=== PATIENT | female | born 1990 | race American Indian/Alaskan Native ===

== ENCOUNTER 2017-03-01 05:54 | Outpatient (CLI) | payer MEDICAID ==
--- NOTE | 2017-03-01 03:13 | XRay Report ---
FINAL REPORT PROCEDURE: XR CHEST ROUTINE 2V TECHNIQUE: HISTORY: cough x 3 weeks COMPARISON: No prior studies are available for comparison. FINDINGS: IMPRESSION:
--- NOTE | 2017-03-01 03:49 | Emergency Department Report ---
- General Chief Complaint: Upper Respiratory Infection Stated Complaint: SOB/COUGHING Source: patient Mode of arrival: Ambulatory Limitations: No Limitations - History of Present Illness Initial Comments: 26-year-old female past medical history bipolar disorder, anxiety, 24 weeks presents with complaint of 3 weeks of persistent cough. Patient states she has recently been on antibiotics azithromycin and has been using her albuterol inhaler with minimal relief of her cough. Patient is awake alert and oriented 3 nontoxic-appearing denies any smoking. States she is also having mild lower abdominal discomfort and eyes any vaginal bleeding. Denies any diarrhea and states she sometimes becomes nauseous after coughing fits. MD Complaint: cough Onset/Timin -: week(s) Severity: moderate Consistency: constant Improves With: OTC cold medicine Worsens With: nothing - Related Data Previous Rx's Medication Instructions Recorded Last Taken Type Ondansetron [Zofran Odt] 4 mg PO Q8H PRN #15 tab.rapdis 03/01/17 Unknown Rx Allergies Allergy/AdvReac Type Severity Reaction Status Date / Time No Known Allergies Allergy Verified 05/12/14 17:31 ED Review of Systems ROS: Stated complaint: SOB/COUGHING Other details as noted in HPI Constitutional: denies: chills, fever Eyes: denies: eye pain, eye discharge, vision change ENT: denies: ear pain, throat pain Respiratory: cough. denies: shortness of breath, wheezing Cardiovascular: denies: chest pain, palpitations Endocrine: no symptoms reported Gastrointestinal: denies: abdominal pain, nausea, diarrhea Genitourinary: denies: urgency, dysuria, discharge Musculoskeletal: denies: back pain, joint swelling, arthralgia Skin: denies: rash, lesions Neurological: denies: headache, weakness, paresthesias Psychiatric: denies: anxiety, depression Hematological/Lymphatic: denies: easy bleeding, easy bruising ED Past Medical Hx - Past Medical History Previous Medical History?: Yes Hx Hypertension: No Hx Congestive Heart Failure: No Hx Diabetes: No Hx Deep Vein Thrombosis: No Hx Renal Disease: No Hx Sickle Cell Disease: No Hx Headaches / Migraines: Yes Hx Seizures: No Hx Psychiatric Treatment: Yes ([facility] in [place], BiPolar, Anxiety, Depression) Hx Asthma: No Hx COPD: No Hx HIV: No - Surgical History Past Surgical History?: Yes Additional Surgical History: , - Social History Smoking Status: Never Smoker Substance Use Type: None - Medications Home Medications: Home Medications Medication Instructions Recorded Confirmed Last Taken Type Ondansetron [Zofran Odt] 4 mg PO Q8H PRN #15 tab.rapdis 03/01/17 Unknown Rx ED Physical Exam - General Limitations: No Limitations General appearance: alert, in no apparent distress - Head Head exam: Present: atraumatic, normocephalic - Eye Eye exam: Present: normal appearance, PERRL, EOMI - ENT ENT exam: Present: mucous membranes moist - Neck Neck exam: Present: normal inspection, full ROM - Respiratory Respiratory exam: Present: normal lung sounds bilaterally. Absent: respiratory distress - Cardiovascular Cardiovascular Exam: Present: regular rate, normal rhythm. Absent: systolic murmur, diastolic murmur, rubs, gallop - GI/Abdominal GI/Abdominal exam: Present: soft, distended (gravid abdomen), normal bowel sounds - Extremities Exam Extremities exam: Present: normal inspection, full ROM - Back Exam Back exam: Present: normal inspection - Neurological Exam Neurological exam: Present: alert, oriented X3, CN II-XII intact, normal gait - Psychiatric Psychiatric exam: Present: normal affect, normal mood - Skin Skin exam: Present: warm, dry, intact, normal color. Absent: rash ED Course Vital Signs 03/01/17 03/01/17 03/01/17 02:05 05:34 05:36 Temperature 98.2 F 98 F Pulse Rate 90 78 Respiratory 18 18 18 Rate Blood Pressure Blood Pressure [Left Arm] Blood Pressure 131/85 121/57 [Right] O2 Sat by Pulse 99 97 97 Oximetry 03/01/17 03/01/17 03/01/17 06:02 06:03 06:08 Temperature Pulse Rate 75 75 79 Respiratory Rate Blood Pressure 108/55 Blood Pressure [Left Arm] Blood Pressure [Right] O2 Sat by Pulse 91 96 96 Oximetry 03/01/17 03/01/17 06:09 06:13 Temperature 97.0 F L Pulse Rate 95 H Respiratory 16 Rate Blood Pressure Blood Pressure 108/55 [Left Arm] Blood Pressure [Right] O2 Sat by Pulse 94 Oximetry ED Medical Decision Making - Medical Decision Making A/P: Acute bronchitis 1-chest x-ray shows no consolidations no pneumonia 2-patient currently on course of azithromycin 3-penicillin by mouth, continue albuterol inhaler, Tylenol when necessary, Zofran when necessary 4-as patient is 24 weeks and complains of very mild abdominal pain we' ll send to labor and delivery for heart monitoring and [facility]PER assessment 5- case discussed with Dr. Wong Critical care attestation.: If time is entered above; I have spent that time in minutes in the direct care of this critically ill patient, excluding procedure time. ED Disposition Clinical Impression: Acute bronchitis Qualifiers: Bronchitis organism: unspecified organism Qualified Code(s): J20.9 - Acute bronchitis, unspecified Disposition: DISCHARGED TO HOME OR SELFCARE Is pt being admited?: No Does the pt Need Aspirin: No Condition: Stable Instructions: Labor and Delivery General Instructions, Acute Bronchitis (ED) Prescriptions: Ondansetron [Zofran Odt] 4 mg PO Q8H PRN #15 tab.rapdis PRN Reason: Nausea Referrals: ALEXEY CASTILLO MD [Staff Physician] - 3-5 Days Forms: [facility] Discharge Summary Time of Disposition: 05:17
[~2017-03-01 05:54] MED LIST: PROVENTIL IH ONE; ROBITUSSIN DM PO ONE; TYLENOL PO ONE; ZOFRAN ODT ONE; ZOFRAN ODT PO ONE
[2017-03-01 06:05] VITALS: BP 108/55
[2017-03-01] MEDS ORDERED: LACTATED RINGERS 500 ML IV ONE (06:14)
== END 2017-03-01 06:49 | disposition home or self-care (01) ==
LOC: TRG 05:54 → EDSTATUS 05:55 → TRG 05:57
PROVIDERS: ATTEND Obstetrics & Gynecology
DX: O26.892 Other specified pregnancy related conditions, second trimester (principal); R06.02 Shortness of breath; R05 Cough; Z3A.23 23 weeks gestation of pregnancy
CPT/HCPCS: 71020; Q0162